=== PATIENT | male | born 1995 | race Caucasian/White ===

== ENCOUNTER → 2020-10-28 11:29 | Outpatient (BNVA) | payer OTHER, SELFPAY | PROVIDERS: Family Provider Pediatrics Adolescent Medicine; Visit Provider Nurse Practitioner Family | DX: Z20.822 Contact with and (suspected) exposure to COVID-19 (principal) | CPT/HCPCS: 87635 ==

== ENCOUNTER 2022-01-10 05:22 | Emergency (ER) | payer SELFPAY ==
[2022-01-10 05:27] VITALS: BP 148/96; PULSE 70; RESP 18; TEMP 36.4; O2SAT 98; BMI 30.7
[2022-01-10 05:30] VITALS: BP 142/86; PULSE 60; O2SAT 97
--- NOTE | 2022-01-10 05:34 | CTR_ITS ---
PROCEDURE INFORMATION: Exam: CT Abdomen And Pelvis Without Contrast Exam date and time: 01/10/2022 5:48 AM Age: 26 years old Clinical indication: Abdominal pain; Right; Patient HX: C/O RT flank/rlq pain. ; Additional info: R flank pain TECHNIQUE: Imaging protocol: Computed tomography of the abdomen and pelvis without contrast. Radiation optimization: All CT scans at this facility use at least one of these dose optimization techniques: automated exposure control; mA and/or kV adjustment per patient size (includes targeted exams where dose is matched to clinical indication); or iterative reconstruction. COMPARISON: CT abdomen pelvis w con* [id number] 11/13/2017 2:46 PM RADIATION DOSE METRICS: Total DLP (mGy-cm): 1567.12 FINDINGS: Pleural spaces: There are nodular densities seen in the right posterior costophrenic recess, the largest measuring 7.8 mm. There are subtle ground-glass opacities surrounding the nodular densities possibly representing atelectasis although a right basilar pneumonitis cannot be excluded. Liver: Normal. No mass. Gallbladder and bile ducts: Normal. No calcified stones. No ductal dilation. Pancreas: Normal. No ductal dilation. Spleen: Normal. No splenomegaly. Adrenal glands: Normal. No mass. Kidneys and ureters: There is mild hydronephrosis and hydroureter present on the right. There is a 3.3 mm partially obstructing mid right ureteral calculus present. Stomach and bowel: Unremarkable. No obstruction. No mucosal thickening. Appendix: The appendix is visualized and is normal in configuration. Intraperitoneal space: Unremarkable. No free air. No significant fluid collection. Vasculature: Unremarkable. No abdominal aortic aneurysm. Lymph nodes: Unremarkable. No enlarged lymph nodes. Urinary bladder: Unremarkable as visualized. Reproductive: Unremarkable as visualized. Bones/joints: Unremarkable. No acute fracture. Soft tissues: Unremarkable. CT/CT kidney stone [id number] IMPRESSION: 1. There is a partially obstructing mid right ureteral calculus present measuring 3.3 mm. 2. Normal appendix 3. Nodular densities seen in the right posterior costophrenic recess, the largest measuring 7.8 mm. For patients at low risk (minimal or absent history of smoking and of other known risk factors), recommend CT Chest at 3-6 months, then consider CT Chest at 18-24 months. For patients at high risk (history of smoking or of other known risk factors), recommend CT Chest at 3-6 months, then CT Chest at 18-24 months. (Reference: Francisco Javier) 4. Hazy in strandy opacities are seen in the right posterior costophrenic recess as well possibly representing pleural or parenchymal scarring versus atelectasis. A patchy pneumonitis cannot be entirely excluded. REFERENCES: Francisco Javier Rojas, et al. Guidelines for Management of Incidental Pulmonary Nodules Detected on CT Images: From the Fleischner Society 2017. Radiology. 2017;284(1):228-243.
[2022-01-10] MEDS: sodium chloride 0.9% 1,000 ML 999 ML IV (05:41)
[2022-01-10 05:51] LABS: Basophils % 0.3 %; Hematocrit 42.7 % (42.0-52.0); Hemoglobin 15.3 g/dL (11.7-16.6); Lymphocytes # 1.9 10^3/uL (0.8-4.8); Lymphocytes % 14.3 %; Mean Corpuscular HGB Conc 35.8 g/dL (30.0-36.0); Mean Corpuscular Hemoglobin 31.3 pg (28.0-34.0); Mean Corpuscular Volume 87.3 fl (80-94); Mean Platelet Volume 9.4 fL (7.4-10.4); Monocytes # 0.8 10^3/uL (0.2-0.9); Monocytes % 6.1 %; Neutrophils # 10.46 10^3/uL (1.8-7.7); Nucleated Red Blood Cells % 0 %; Platelet Count 462 10^3/cmm (130-400); Red Blood Count 4.89 10^6/uL (4.1-5.3); Red Cell Distribution Width 12.6 % (12.1-15.1); White Blood Count 13.2 10^3/uL (4.0-10.0)
[2022-01-10 06:00] VITALS: BP 129/73; PULSE 58; O2SAT 96
[2022-01-10 06:07] LABS: Alanine Aminotransferase 28 U/L (0-41); Albumin Level 4.5 g/dL (3.5-5.2); Alkaline Phosphatase 100 IU/L (40-130); Aspartate Amino Transferase 16 U/L (0-40); Blood Urea Nitrogen 11 mg/dL (6-20); C Reactive Protein 7.3 mg/L (0.0-4.9); Calcium 9.4 mg/dL (8.5-10.5); Carbon Dioxide 26 mmol/L (22-29); Chloride 103 mmol/L (98-107); Globulin 3.3 g/dL (1.3-4.6); Glomerular Filtration Rate 100.5 mL/min (90-130); Glucose 121 mg/dL (65-115); Lipase 13 U/L (13-60); Osmolality Calculated 291 mOsm/kg (285-295); Sodium 140 mmol/L (136-145); Total Bilirubin 0.3 mg/dL (0.15-1.2); Total Protein 7.8 g/dL (6.6-8.7)
--- NOTE | 2022-01-10 06:25 | ECG_ITS ---
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 Measurements Intervals [place] Rate: 57 P: 14 RI: 165 QRS: 6 QRSD: 88 T: 39 QT: 393 QTc: 383 Interpretive Statements SINUS BRADYCARDIA WITH SINUS ARRHYTHMIA Compared to ECG 08/11/2018 00:03:27 Sinus rhythm no longer present Indeterminate axis no longer present Incomplete right bundle-branch block no longer present Myocardial infarct finding no longer present Electronically Signed On 01-10-2022 17:32:40 CDT by Vlad Ramos M.D. [id number]
[2022-01-10 06:30] VITALS: BP 138/85; PULSE 59; O2SAT 95
--- NOTE | 2022-01-10 06:32 | ED_ITS ---
HPI - Abdominal Pain General: Chief Complaint: Abdominal Pain Stated Complaint: right side abdominal pain Time Seen by Provider: 01/10/22 05:32 Source: patient Mode of arrival: ambulatory Limitations: no limitations History of Present Illness: 26-year-old male presents emergency room complaining of right flank pain. Patient has a history of nephrolithiasis, he has passed 3 stones in the past. Last night around 10:00 and went to bed he noticed he had some discomfort in his right flank it got progressively worse through the night he followed broke down and took a hydrocodone from a previous prescription on arrival here while he still has some flank pain radiating down to the groin he says it is very tolerable and he declines pain medications. He has not had any nausea vomiting or diarrhea. He is not noticing dysuria urgency frequency or hematuria. MD elicited complaint: flank pain (Right) Pertinent past history: kidney stones Onset (ago): hour(s) Pain Consistency: intermittent and colicky Location: R flank Severity: severe Quality: stabbing Radiation: other (Right groin) Exacerbating factors: nothing Relieving factors: medication Associated Symptoms: Reports GI cramping; Denies anorexia, belching, bloating, change in bowel habits, change in stool character, chills, coffee ground emesis, constipation, diarrhea, dyspepsia, dysuria, excessive flatus, fever(s), heartburn, hematochezia, hematuria, hematemesis, fecal incontinence, loose stools, melena, nausea, poor appetite, syncope and vomiting Review of Systems Const: Denies: fever(s) or chills ENMT: Denies: throat pain, ear or mastoid pain, nasal discharge or nasal congestion Card: Denies: syncope Resp: Denies: dyspnea, productive cough or non-productive cough GI: Reports: abdominal pain and GI cramping; Denies: nausea, vomiting, hematemesis, coffee ground emesis, heartburn, diarrhea, constipation, bloating, belching, excessive flatus, fecal incontinence, change in bowel habits, change in stool character, hematochezia or melena : Reports: flank pain; Denies: difficulty urinating, dysuria, urinary frequency, urinary urgency or hematuria Skin/Breast: Denies: rash or pruritus PFSH ED PFSH: Medical History (Updated 01/10/22 @ 06:39 by Rafy Brothers DO) Nephrolithiasis Surgical History (Updated 01/10/22 @ 06:39 by Rafy Brothers DO) No pertinent past surgical history Social History Smoking and tobacco status: never smoked Alcohol intake: never Physical Exam Const: COMMON NORMALS: no acute distress GENERAL APPEARANCE: cooperative and comfortable ORIENTATION/CONSCIOUSNESS: Yes awake, Yes oriented to person, Yes oriented to place and Yes oriented to time HENMT: COMMON NORMALS: normocephalic, atraumatic and hearing grossly normal bilaterally HEAD & SCALP: normocephalic and atraumatic Neck/C-Spine: COMMON NORMALS: no JVD Resp: COMMON NORMALS: normal respiratory effort, No retractions, No use of accessory muscles and clear to auscultation bilaterally AUSCULTATION: clear to auscultation bilaterally Cardio: COMMON NORMALS: no JVD, regular rate, regular rhythm and No murmurs present (Cardio) RATE: regular rate RHYTHM: regular rhythm GI: COMMON NORMALS: Soft to palpation and No hepatosplenomegaly present AUSCULTATION: Yes normoactive bowel sounds PALPATION: Yes Soft to palpation, No Tenderness to palpation present (GI), No Guarding due to palpation present (GI) and Yes No hepatosplenomegaly present Extremity: COMMON NORMALS: normal to inspection, capillary refill normal, no clubbing, cyanosis or edema, no calf tenderness and no pedal edema Neuro: SENSORIUM/ORIENTATION: Yes oriented to person, Yes oriented to place an d Yes oriented to time Skin: COMMON NORMALS: no rashes or lesions noted GENERAL SKIN EXAM: no rashes or lesions noted Course Vital Signs: Vital signs: Vital Signs Temperature 97.5 F L 01/10/22 05:27 Pulse Rate 59 L 01/10/22 06:30 Respiratory Rate 18 01/10/22 05:27 Blood Pressure 138/85 01/10/22 06:30 Pulse Oximetry 95 01/10/22 06:30 MDM - Abdominal Pain Medical Decision Making Hydrocodone tamsulosin and Zofran. Discharge home anticipate he should be able to pass his stone at this size. He has not previously seen urology he said they did collect one of the previous stones but evidently was never analyzed. We will set up referral to urology through case management strain urine to collect stone for analysis if pain is uncontrolled return. At time of discharge pain well controlled. Patient advised of incidental finding of chest abnormality and need for follow-up CT in 3 to 6 months he should follow-up with his primary care doctor to have this arranged. Medical Records I reviewed the patient's medical records. Lab Data I reviewed the patient's lab results. : 01/10/22 05:36 01/10/22 05:36 Labs/Radiology: Radiology Impressions Abdomen/Pelvis CT 01/10/22 05:34 IMPRESSION: 1. There is a partially obstructing mid right ureteral calculus present measuring 3.3 mm. 2. Normal appendix 3. Nodular densities seen in the right posterior costophrenic recess, the largest measuring 7.8 mm. For patients at low risk (minimal or absent history of smoking and of other known risk factors), recommend CT Chest at 3-6 months, then consider CT Chest at 18-24 months. For patients at high risk (history of smoking or of other known risk factors), recommend CT Chest at 3-6 months, then CT Chest at 18-24 months. (Reference: Francisco Javier) 4. Hazy in strandy opacities are seen in the right posterior costophrenic recess as well possibly representing pleural or parenchymal scarring versus atelectasis. A patchy pneumonitis cannot be entirely excluded. REFERENCES: Francisco Javier Rojas, et al. Guidelines for Management of Incidental Pulmonary Nodules Detected on CT Images: From the Fleischner Society 2017. Radiology. 2017;284(1):228-243. Laboratory Results WBC 13.2 10^3/uL (4.0-10.0) H 01/10/22 05:36 RBC 4.89 10^6/uL (4.1-5.3) 01/10/22 05:36 Hgb 15.3 g/dL (11.7-16.6) 01/10/22 05:36 Hct 42.7 % (42.0-52.0) 01/10/22 05:36 MCV 87.3 fl (80-94) 01/10/22 05:36 MCH 31.3 pg (28.0-34.0) 01/10/22 05:36 MCHC 35.8 g/dL (30.0-36.0) 01/10/22 05:36 RDW 12.6 % (12.1-15.1) 01/10/22 05:36 Plt Count 462 10^3/cmm (130-400) H 01/10/22 05:36 MPV 9.4 fL (7.4-10.4) 01/10/22 05:36 Neut % (Auto) 79.0 % 01/10/22 05:36 Lymph % (Auto) 14.3 % 01/10/22 05:36 Bullock % (Auto) 6.1 % 01/10/22 05:36 Eos % (Auto) 0.0 % 01/10/22 05:36 Baso % (Auto) 0.3 % 01/10/22 05:36 Neut # (Auto) 10.46 10^3/uL (1.8-7.7) H 01/10/22 05:36 Lymph # (Auto) 1.9 10^3/uL (0.8-4.8) 01/10/22 05:36 Bullock # (Auto) 0.8 10^3/uL (0.2-0.9) 01/10/22 05:36 Eos # (Auto) 0.0 10^3/uL (0.0-0.8) 01/10/22 05:36 Baso # (Auto) 0.0 10^3/uL (0.0-0.1) 01/10/22 05:36 Nucleated RBC % (auto) 0 % 01/10/22 05:36 Nucleated RBCs # 0.0 /100WBC 01/10/22 05:36 Sodium 140 mmol/L (136-145) 01/10/22 05:36 Potassium 4.0 mmol/L (3.5-5.1) 01/10/22 05:36 Chloride 103 mmol/L (98-107) 01/10/22 05:36 Carbon Dioxide 26 mmol/L (22-29) 01/10/22 05:36 Anion Gap 15.0 (5-19) 01/10/22 05:36 BUN 11 mg/dL (6-20) 01/10/22 05:36 Creatinine 0.9 mg/dL (0.7-1.2) 01/10/22 05:36 GFR Calculation 100.5 mL/min (90-130) 01/10/22 05:36 Glucose 121 mg/dL (65-115) H 01/10/22 05:36 Calculated Osmolality 291 mOsm/kg (285-295) 01/10/22 05:36 Calcium 9.4 mg/dL (8.5-10.5) 01/10/22 05:36 Total Bilirubin 0.3 mg/dL (0.15-1.2) 01/10/22 05:36 AST 16 U/L (0-40) 01/10/22 05:36 ALT 28 U/L (0-41) 01/10/22 05:36 Alkaline Phosphatase 100 IU/L (40-130) 01/10/22 05:36 C-Reactive Protein 7.3 mg/L (0.0-4.9) H 01/10/22 05:36 Total Protein 7.8 g/dL (6.6-8.7) 01/10/22 05:36 Albumin 4.5 g/dL (3.5-5.2) 01/10/22 05:36 Globulin 3.3 g/dL (1.3-4.6) 01/10/22 05:36 Lipase 13 U/L (13-60) 01/10/22 05:36 Discharge Plan Discharge Patient Disposition: Home Clinical Impression: Right nephrolithiasis Condition: Stable Prescriptions: New hydrocodone-acetaminophen 5-325 mg tablet 1 tab PO Q6H PRN (Reason: pain) Qty: 15 0RF tamsulosin 0.4 mg capsule 0.4 mg PO DAILY Qty: 10 0RF ondansetron HCl 4 mg tablet 4 mg PO Q6H PRN (Reason: nausea and vomiting) Qty: 20 0RF No Action escitalopram oxalate 20 mg tablet 20 mg PO DAILY 0RF Discharge Orders: Discharge ED (Routine); Ordered 01/10/22 Ordered By: Rafy Brothers Discharge Diet: Usual diet Discharge Activity: Increase activity as tolerated Activity Restrictions/Additional Instructions: it investment/portfolio manager will make arrangements for you to follow-up with urology. Strain urine to capture stone to submit for evaluation. Coding Level of Care Code ED Roof Plumber for Barbara Fwd Exam Comprehensive
--- NOTE | 2022-01-17 11:57 | DCPLANNER ---
Addendum entered by Corina Marinelli 02/07/22 11:27: Patient had a follow up appointment scheduled for 01.20.[address] Pina at urology - patient did attend appointment. Original Note: avionics manager had message to schedule a follow up appointment for patient with urology. avionics manager sent patients information to the front office staff at urology. Patients information will be printed and reviewed. Clinic will call patient with appointment information.
== END 2022-01-10 07:03 | disposition home or self-care (01) ==
PROVIDERS: Emergency Medicine; Emergency Provider Family Medicine
DX: N20.0 Calculus of kidney (principal); Z87.442 Personal history of urinary calculi
CPT/HCPCS: 74176; 80053; 83690; 85025; 86140; 93005; 96360; 99284; J7030

== ENCOUNTER 2022-01-20 11:43 | Outpatient (CLI) | payer SELFPAY ==
--- NOTE | 2022-01-20 12:05 | XR_ITS ---
WS: [id number] K[facility], AP view, 01/20/2022 Clinical Data: Nephrolithiasis Comparison: None. Findings: No abnormal intraabdominal masses or calcifications are seen. There is no dilatated small bowel or ev idence of obstruction. There is a moderate amount of fecal material throughout the colon. XR/XR KUB [id number] Impression: Negative KUB.
== END 2022-01-20 11:44 | disposition home or self-care (01) ==
PROVIDERS: Visit Provider Urology
DX: N20.0 Calculus of kidney (principal)
CPT/HCPCS: 74018; 81003

== ENCOUNTER 2023-02-12 02:51 | Emergency (ER) | payer BC, SELFPAY ==
[2023-02-12 03:06] VITALS: BP 155/99; PULSE 84; RESP 18; TEMP 36.6; O2SAT 86; BMI 31.4
--- NOTE | 2023-02-12 03:13 | XRR_ITS ---
PROCEDURE INFORMATION: Exam: XR Right Hand Exam date and time: 02/12/2023 3:20 AM Age: 27 years old Clinical indication: Injury or trauma; Blunt trauma (contusions or hematomas); Right; Patient HX: Patient accidentally punched the frame of a tractor while replacing an oil pump. C/O pain to lateral side of hand. ; Additional info: R hand injury TECHNIQUE: Imaging protocol: Radiologic exam of the right hand. Views: 3 or more views. COMPARISON: No relevant prior studies available. FINDINGS: Bones/joints: There is comminuted fracture of the base of the 5th metacarpal. Soft tissues: There is associated soft tissue swelling. XR/XR hand RT min 3V* [id number] IMPRESSION: Fracture, right 5th metacarpal.
[2023-02-12 03:53] VITALS: RESP 16
[2023-02-12] MEDS: oxyCODONE-APAP 5-325 mg Tablet 2 TAB PO (03:53)
[2023-02-12 04:28] VITALS: RESP 16; O2SAT 99
--- NOTE | 2023-02-12 05:45 | W.ED.TRAUMA ---
HPI - Trauma General: Chief Complaint: Trauma Stated Complaint: right hand injury Time Seen by Provider: 02/12/23 03:12 Source: patient History of Present Illness: 27-year old male who struck a tractor frame last evening injuring his right hand. He complains of proximal right hand pain on the ulnar side with swelling. No paresthesia currently, but did initially. MD complaint: fall and injury Onset (ago): hour(s) Loss of Consciousness: no Location - Extremities: Right: hand Associated symptoms: Reports nausea; Denies confusion, cough, diaphoresis, short of breath or vomiting Review of Systems Const: Denies: diaphoresis Eyes: Denies: change in vision ENMT: Denies: hoarseness GI: Reports: nausea; Denies: vomiting Skin/Breast: Denies: rash Neuro: Denies: confusion PFSH ED PFSH: Medical History Nephrolithiasis Surgical History No pertinent past surgical history Social History Smoking and tobacco status: current every day smoker smokeless tobacco Alcohol intake: never Substance/Drug Use: never Marital status: Single Current occupational status: employed 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 Physical Exam Const: COMMON NORMALS: no acute distress GENERAL APPEARANCE: cooperative; not ill appearing and not frail appearing HENMT: COMMON NORMALS: normocephalic, atraumatic and Normal external nose present HEAD & SCALP: normocephalic and atraumatic FACE & SINUS: normal facial exam and face symmetric NOSE: Normal external nose present Eye: COMMON NORMALS: Equal, round and reactive pupils present and EOMs intact bilaterally PUPIL: Yes Equal, round and reactive pupils present Neck/C-Spine: GENERAL: Yes trachea midline Chest: CHEST: Yes Symmetrical chest wall rise Resp: COMMON NORMALS: normal respiratory effort, No retractions and No use of accessory muscles Cardio: COMMON NORMALS: regular rate and regular rhythm RATE: regular rate RHYTHM: regular rhythm Extremity: COMMON NORMALS: normal to inspection, capillary refill normal and no pedal edema NARRATIVE EXTREMITY EXAM: Examination the right hand reveals swelling over the dorsum of the fifth metacarpal base. There is no significant deformity. No wrist deformity. Sensation is intact distally. Capillary refill is normal. Neuro: BRICE COMA SCALE: document GCS findings Brice coma scale eye opening: Spontaneous Brice coma scale verbal response: Orientated Brice coma scale motor response: Obey commands [place] coma scale total score: 15 SENSORY EXAM: Yes extremities (intact) Psych: COMMON NORMALS: speech normal SPEECH: Yes normal speech Skin: COMMON NORMALS: no rashes or lesions noted GENERAL SKIN EXAM: no rashes or lesions noted Course Vital Signs: Vital signs: Vital Signs Temperature 97.8 F 02/12/23 03:06 Pulse Rate 84 02/12/23 03:06 Respiratory Rate 16 02/12/23 04:28 Blood Pressure 155/99 02/12/23 03:06 Pulse Oximetry 99 02/12/23 04:28 MDM - Trauma Medical Decision Making Patient has a nondisplaced right 5th metacarpal base fracture. He will be placed in an ulnar gutter splint, asked to follow-up with orthopedic surgery next week. Lab Data Radiology Impressions Hand X-Ray 02/12/23 03:13 IMPRESSION: Fracture, right 5th metacarpal. Discharge Plan Discharge Patient Disposition: Home Clinical Impression: Fracture of fifth metacarpal bone Qualifiers: Encounter type: initial encounter Fracture type: closed Metacarpal location: base Fracture alignment: nondisplaced Laterality: right Qualified Code(s): S62.346A - Nondisplaced fracture of base of fifth metacarpal bone, right hand, initial encounter for closed fracture Condition: Stable Prescriptions: Continued hydrocodone-acetaminophen 5-325 mg tablet 1 tab PO Q6H PRN (Reason: pain) Qty: 10 0RF No Action escitalopram oxalate 20 mg tablet 20 mg PO DAILY tamsulosin 0.4 mg capsule 0.4 mg PO DAILY Qty: 10 0RF ondansetron HCl 4 mg tablet 4 mg PO Q6H PRN (Reason: nausea and vomiting) Qty: 20 0RF Discharge Orders: Discharge ED (Routine); Ordered 02/12/23 Ordered By: Rupesh Morales Referrals: Cristal Hernandez MD [Physician] - 1-3 days Cathy Armstrong PA [Primary Care Provider] - Patient Instructions: Hand Fracture (ED), Opioid Safety, Pain Management Activity Restrictions/Additional Instructions: Stay in splint until seen by orthopedics. Ice through the splint for help with pain and swelling. Return for problems. Call orthopedic clinic at the number above on Monday morning for an appointment this week. Pain medication as directed. Coding Level of Care Code ED Market Relationship Manager for Barbara Ascencio
== END 2023-02-12 04:30 | disposition home or self-care (01) ==
PROVIDERS: Emergency Provider Emergency Medicine; PCP Physician Assistant
DX: S62.346A Nondisplaced fracture of base of fifth metacarpal bone, right hand, initial encounter for closed fracture (principal); F17.220 Nicotine dependence, chewing tobacco, uncomplicated; W22.09XA Striking against other stationary object, initial encounter
CPT/HCPCS: 29125; 73130; 99283

== ENCOUNTER 2023-02-16 06:00 | Outpatient (CLI) | payer BC, SELFPAY | END 2023-02-16 06:01 | LOC: SOT 02-21 10:36 | PROVIDERS: PCP Physician Assistant; Visit Provider Student in an Organized Health Care Education/Training Program | DX: Z46.89 Encounter for fitting and adjustment of other specified devices (principal); S62.346D Nondisplaced fracture of base of fifth metacarpal bone, right hand, subsequent encounter for fracture with routine healing; X58.XXXD Exposure to other specified factors, subsequent encounter | CPT/HCPCS: 97760; L3919 ==

== ENCOUNTER → 2023-02-16 08:59 | Outpatient (BNVA) | payer BC, SELFPAY | PROVIDERS: PCP Physician Assistant; Visit Provider Student in an Organized Health Care Education/Training Program | DX: S62.346A Nondisplaced fracture of base of fifth metacarpal bone, right hand, initial encounter for closed fracture; W22.8XXA Striking against or struck by other objects, initial encounter | CPT/HCPCS: 73130 ==

== ENCOUNTER 2023-03-03 06:00 | Outpatient (CLI) | payer BC, SELFPAY | END 2023-03-03 06:01 | disposition home or self-care (01) | LOC: SOT 03-08 10:41 | PROVIDERS: PCP Physician Assistant; Visit Provider Student in an Organized Health Care Education/Training Program | DX: Z46.89 Encounter for fitting and adjustment of other specified devices (principal); S62.306A Unspecified fracture of fifth metacarpal bone, right hand, initial encounter for closed fracture; X58.XXXA Exposure to other specified factors, initial encounter | CPT/HCPCS: 97760; L3984 ==

== ENCOUNTER → 2023-03-03 08:59 | Outpatient (BNVA) | payer BC, SELFPAY | PROVIDERS: PCP Physician Assistant; Visit Provider Student in an Organized Health Care Education/Training Program | DX: S62.346A Nondisplaced fracture of base of fifth metacarpal bone, right hand, initial encounter for closed fracture; W22.8XXA Striking against or struck by other objects, initial encounter | CPT/HCPCS: 73130 ==